=== PATIENT | female | born 1970 | race Caucasian/White ===

== ENCOUNTER 2017-08-06 20:39 | Emergency (ER) | payer OTHER ==
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
[2017-08-06] MEDS ORDERED: IBUPROFEN 600 MG TAB PO ONE (21:56)
[2017-08-06 22:11] VITALS: BP 122/84; PULSE 39; RESP 16; TEMP 98.1; O2SAT 96
== END 2017-08-06 22:11 | disposition home or self-care (01) ==
DX: S00.93XA Contusion of unspecified part of head, initial encounter (principal); W50.0XXA Accidental hit or strike by another person, initial encounter; Y99.8 Other external cause status; Y93.89 Activity, other specified